=== PATIENT | male | born 1945 ===

== ENCOUNTER 2020-06-12 17:05 | Emergency (ER) | payer OTHER ==
[~2020-06-12] VITALS: Ht 175.3 cm; Wt 72.6 kg
[2020-06-12 17:36] LABS: BASOPHILS ABSOLUTE AUTO 0.08 K/mm3 (0.00-0.23); BASOPHILS PERCENT AUTO 1 % (0-2); EOSINOPHILS ABSOLUTE AUTO 0.14 K/mm3 (0.00-0.68); EOSINOPHILS PERCENT AUTO 2 % (0-6); Hematocrit 39.6 % (37.0-53.0); Hemoglobin 13.7 g/dL (13.5-17.5); IMMATURE GRAN ABSOLUTE AUTO 0.02 K/mm3 (0.00-0.10); IMMATURE GRAN PERCENT AUTO 0 % (0-1); LYMPHOCYTES ABSOLUTE AUTO 2.07 K/mm3 (0.84-5.20); LYMPHOCYTES PERCENT AUTO 22 % (21-46); MONOCYTES ABSOLUTE AUTO 0.73 K/mm3 (0.16-1.47); MONOCYTES PERCENT AUTO 8 % (4-13); Mean Corpuscular HGB 34.8 pg (26.0-34.0); Mean Corpuscular HGB Conc 34.6 g/dL (31.5-36.5); Mean Corpuscular Volume 101 fL (80-100); Mean Platelet Volume 9.7 fL (9.1-12.4); NEUTROPHILS ABSOLUTE AUTO 6.27 K/mm3 (1.96-9.15); NEUTROPHILS PERCENT AUTO 67 % (41-73); Platelet Count 289 K/mm3 (150-400); RDW Coefficient Variation 11.3 % (11.7-14.2); RDW Standard Deviation 41.7 fL (35.1-46.3); Red Blood Cell Count 3.94 M/mm3 (4.30-5.90); White Blood Cell Count 9.31 K/mm3 (4.00-11.30)
[2020-06-12 17:50] LABS: Prothrombin Time Results 10.7 Sec (9.7-11.5)
[2020-06-12 17:51] LABS: Alanine Aminotransfer (ALT/SGP 21 U/L (12-78); Albumin, Blood 3.9 g/dL (3.4-5.0); Albumin/Globulin Ratio 0.9 (0.8-1.8); Alk Phos 70 U/L (50-136); Anion Gap 7 mmol/L (6-16); Aspartate Aminotrans (AST/SGOT 26 U/L (12-37); Bilirubin, Total 0.9 mg/dL (0.1-1.0); Blood Urea Nitrogen 16 mg/dL (8-24); Bun/Creatinine Ratio 15.8 (12.0-20.0); CO2, Blood 26 mmol/L (21-32); Chloride, Blood 105 mmol/L (98-108); Creatinine, Blood 1.01 mg/dL (0.60-1.20); Globulin, Blood 4.3 g/dL (2.2-4.0); Glomerular Filtration Rate >60 (60-); Glucose, Blood 101 mg/dL (70-99); Potassium, Blood 3.8 mmol/L (3.5-5.5); Sodium, Blood 138 mmol/L (136-145); Total Protein, Blood 8.2 g/dL (6.4-8.2)
== END 2020-06-12 21:05 | disposition short-term general hospital (02) ==
LOC: ER 17:05
PROVIDERS: Emergency Medicine
DX: S06.5X9A Traumatic subdural hemorrhage with loss of consciousness of unspecified duration, initial encounter (principal); H57.89 Other specified disorders of eye and adnexa; Z79.82 Long term (current) use of aspirin; Z79.02 Long term (current) use of antithrombotics/antiplatelets; Z79.899 Other long term (current) drug therapy; Z88.0 Allergy status to penicillin; Z88.1 Allergy status to other antibiotic agents; W18.2XXA Fall in (into) shower or empty bathtub, initial encounter
CPT/HCPCS: 36415; 70450; 80053; 85025; 85610; 85730; 93005; 93010; 99285-25

== ENCOUNTER → 2020-06-12 | Outpatient (CLI) | payer OTHER ==
[~2020-06-12] MED LIST: ALBU3IS INH; ASPI81CH PO; ASPI81EC; CLOP75; CLOP75 PO; Cleocin HCl300 MG PO; Crestor20 MG PO; Diovan160 MG PO; EZET10; FINA5 PO; FISH1000 PO; FOL2.2T; FOLI1 PO; FURO20 PO; HYDCHL12.5 PO; MELA3 PO; METO25ER PO; OXYACE5T PO; PIOG15; PROAIR RESPICL90 MCG; PROM25 PO; ROSU10TA; VALS80; VALSARTAN160 MG PO; [UNRECOGNIZED DRUG - OTHER]
== END | disposition home or self-care (01) ==
LOC: LAB 15:35 → LAB SHORT 15:35
DX: R51.0 Headache with orthostatic component, not elsewhere classified (principal)
CPT/HCPCS: 85651

== ENCOUNTER 2020-07-31 15:07 | Emergency (ER) | payer OTHER ==
[~2020-07-31] VITALS: Ht 172.7 cm; Wt 71.2 kg
[2020-07-31 16:06] LABS: BASOPHILS ABSOLUTE AUTO 0.08 K/mm3 (0.00-0.23); BASOPHILS PERCENT AUTO 1 % (0-2); EOSINOPHILS PERCENT AUTO 4 % (0-6); Hematocrit 37.1 % (37.0-53.0); Hemoglobin 12.3 g/dL (13.5-17.5); IMMATURE GRAN ABSOLUTE AUTO 0.01 K/mm3 (0.00-0.10); IMMATURE GRAN PERCENT AUTO 0 % (0-1); LYMPHOCYTES ABSOLUTE AUTO 2.15 K/mm3 (0.84-5.20); LYMPHOCYTES PERCENT AUTO 31 % (21-46); MONOCYTES ABSOLUTE AUTO 0.66 K/mm3 (0.16-1.47); MONOCYTES PERCENT AUTO 10 % (4-13); Mean Corpuscular HGB 33.2 pg (26.0-34.0); Mean Corpuscular HGB Conc 33.2 g/dL (31.5-36.5); Mean Corpuscular Volume 100 fL (80-100); Mean Platelet Volume 9.9 fL (9.1-12.4); NEUTROPHILS ABSOLUTE AUTO 3.68 K/mm3 (1.96-9.15); NEUTROPHILS PERCENT AUTO 53 % (41-73); Platelet Count 190 K/mm3 (150-400); RDW Coefficient Variation 11.8 % (11.7-14.2); RDW Standard Deviation 43.2 fL (35.1-46.3); White Blood Cell Count 6.88 K/mm3 (4.00-11.30)
[2020-07-31 16:15] LABS: Alanine Aminotransfer (ALT/SGP 16 U/L (12-78); Albumin, Blood 3.3 g/dL (3.4-5.0); Alk Phos 57 U/L (50-136); Anion Gap 4 mmol/L (6-16); Aspartate Aminotrans (AST/SGOT 14 U/L (12-37); Bilirubin, Total 0.7 mg/dL (0.1-1.0); Blood Urea Nitrogen 22 mg/dL (8-24); Bun/Creatinine Ratio 18.6 (12.0-20.0); CO2, Blood 27 mmol/L (21-32); Calcium, Blood 9.2 mg/dL (8.5-10.1); Chloride, Blood 109 mmol/L (98-108); Creatinine, Blood 1.18 mg/dL (0.60-1.20); Globulin, Blood 3.4 g/dL (2.2-4.0); Glomerular Filtration Rate >60 (60-); Glucose, Blood 148 mg/dL (70-99); Potassium, Blood 3.6 mmol/L (3.5-5.5); Sodium, Blood 140 mmol/L (136-145); Total Protein, Blood 6.7 g/dL (6.4-8.2)
[2020-07-31 16:18] LABS: International Normalized Ratio 1.01; Prothrombin Time Results 10.9 Sec (9.7-11.5)
== END 2020-07-31 17:17 | disposition home or self-care (01) ==
LOC: ER 15:07
PROVIDERS: Physician Assistant
DX: G45.9 Transient cerebral ischemic attack, unspecified (principal); R47.01 Aphasia; R20.0 Anesthesia of skin; I10 Essential (primary) hypertension; E78.5 Hyperlipidemia, unspecified; E11.9 Type 2 diabetes mellitus without complications; Z87.891 Personal history of nicotine dependence; Z88.0 Allergy status to penicillin; Z88.1 Allergy status to other antibiotic agents; Z79.899 Other long term (current) drug therapy
CPT/HCPCS: 36415; 70450; 80053; 82947; 85025; 85610; 93005; 93010; 99285-25

== ENCOUNTER 2021-09-15 12:45 | Emergency (ER) | payer OTHER ==
[~2021-09-15] VITALS: Ht 172.7 cm; Wt 72.6 kg
[2021-09-15 13:45] LABS: BASOPHILS ABSOLUTE AUTO 0.11 K/mm3 (0.00-0.23); BASOPHILS PERCENT AUTO 1 % (0-2); EOSINOPHILS ABSOLUTE AUTO 0.13 K/mm3 (0.00-0.68); EOSINOPHILS PERCENT AUTO 1 % (0-6); Hematocrit 43.1 % (37.0-53.0); Hemoglobin 14.2 g/dL (13.5-17.5); IMMATURE GRAN ABSOLUTE AUTO 0.06 K/mm3 (0.00-0.10); IMMATURE GRAN PERCENT AUTO 1 % (0-1); LYMPHOCYTES ABSOLUTE AUTO 1.51 K/mm3 (0.84-5.20); LYMPHOCYTES PERCENT AUTO 12 % (21-46); MONOCYTES PERCENT AUTO 5 % (4-13); Mean Corpuscular HGB 35.7 pg (26.0-34.0); Mean Corpuscular HGB Conc 32.9 g/dL (31.5-36.5); Mean Corpuscular Volume 108 fL (80-100); Mean Platelet Volume 9.7 fL (9.1-12.4); NEUTROPHILS ABSOLUTE AUTO 10.09 K/mm3 (1.96-9.15); NEUTROPHILS PERCENT AUTO 81 % (41-73); Platelet Count 215 K/mm3 (150-400); RDW Coefficient Variation 12.5 % (11.7-14.2); RDW Standard Deviation 50.4 fL (35.1-46.3); Red Blood Cell Count 3.98 M/mm3 (4.30-5.90)
[2021-09-15 14:09] LABS: Albumin, Blood 3.7 g/dL (3.4-5.0); Albumin/Globulin Ratio 1.1 (0.8-1.8); Bilirubin, Total 0.6 mg/dL (0.1-1.0); Bun/Creatinine Ratio 18.1 (12.0-20.0); Calcium, Blood 9.7 mg/dL (8.5-10.1); Creatinine, Blood 1.38 mg/dL (0.60-1.20); Globulin, Blood 3.3 g/dL (2.2-4.0); Potassium, Blood 3.5 mmol/L (3.5-5.5)
[2021-09-15 18:02] LABS: Source, Urine Clean Catch
[2021-09-15 18:07] LABS: Appearance, Urine Hazy (Clear); Bilirubin, Urine Neg (Neg); Blood, Urine 3+ (Neg); Color, Urine Yellow (P-Yellow); Glucose Qualitative, Urine Neg (Neg); Ketones, Urine 3+ (Neg); Leukocyte Esterase, Urine Neg (Neg); Nitrite, Urine Neg (Neg); Protein, Urine 3+ (Neg); Urobilinogen, Urine NORM (Normal)
[2021-09-15 18:29] LABS: Amorphous Light (0-Heavy); Bacteria Mod /hpf; Mucus Light (0-Heavy); Squamous Epithelial Cells Rare /hpf (Few)
== END 2021-09-15 17:16 | disposition left against medical advice (07) ==
LOC: ER 12:45
PROVIDERS: Student in an Organized Health Care Education/Training Program
DX: R00.2 Palpitations (principal); H53.8 Other visual disturbances; Z53.21 Procedure and treatment not carried out due to patient leaving prior to being seen by health care provider
CPT/HCPCS: 36415; 71045; 80053; 81001; 83880; 84484; 85025

== ENCOUNTER 2023-05-05 15:25 | Observation (INO) | payer OTHER ==
[~2023-05-05] VITALS: Ht 175.3 cm; Wt 69.8 kg
[~2023-05-05 15:25] MED LIST changes: +Folic Acid0.8 MG PO
[2023-05-05] MEDS ORDERED: Ketorolac Tromethamine 30mg Vial IV ONE (16:15)
[2023-05-05] MEDS ORDERED: Aspirin 81 MG Chew PO ONE (16:15)
[2023-05-05 16:16] LABS: BASOPHILS ABSOLUTE AUTO 0.07 K/mm3 (0.00-0.23); BASOPHILS PERCENT AUTO 1 % (0-2); EOSINOPHILS ABSOLUTE AUTO 0.52 K/mm3 (0.00-0.68); EOSINOPHILS PERCENT AUTO 6 % (0-6); Hematocrit 38.6 % (37.0-53.0); Hemoglobin 13.5 g/dL (13.5-17.5); IMMATURE GRAN ABSOLUTE AUTO 0.01 K/mm3 (0.00-0.10); IMMATURE GRAN PERCENT AUTO 0 % (0-1); LYMPHOCYTES ABSOLUTE AUTO 1.62 K/mm3 (0.84-5.20); LYMPHOCYTES PERCENT AUTO 18 % (21-46); MONOCYTES ABSOLUTE AUTO 0.86 K/mm3 (0.16-1.47); MONOCYTES PERCENT AUTO 10 % (4-13); Mean Corpuscular HGB 35.8 pg (26.0-34.0); Mean Corpuscular Volume 102 fL (80-100); Mean Platelet Volume 9.9 fL (9.1-12.4); NEUTROPHILS ABSOLUTE AUTO 5.96 K/mm3 (1.96-9.15); NEUTROPHILS PERCENT AUTO 66 % (41-73); Platelet Count 171 K/mm3 (150-400); RDW Coefficient Variation 12.2 % (11.7-14.2); RDW Standard Deviation 46.2 fL (35.1-46.3); Red Blood Cell Count 3.77 M/mm3 (4.30-5.90); White Blood Cell Count 9.04 K/mm3 (4.00-11.30)
[2023-05-05] MEDS ORDERED: METO50ER PO (16:27)
[2023-05-05] MEDS ORDERED: Diovan160 MG PO (16:27)
[2023-05-05 16:31] LABS: International Normalized Ratio 1.04; Prothrombin Time Results 10.9 Sec (9.7-11.5)
[2023-05-05 16:35] LABS: Calcium, Ionized (POC) 1.25 mmol/L (1.10-1.46); Chloride (POC) 100 mmol/L (98-108); Creatinine (POC) 1.4 mg/dL (0.8-1.3); Glucose (ISTAT POC) 193 mg/dL (70-99); Hemoglobin (POC) 12.9 g/dL (13.5-17.5); Potassium (POC) 3.3 mmol/L (3.5-5.5); Sodium (POC) 140 mmol/L (135-148); Total CO2 (POC) 29 mmol/L (21-32)
[2023-05-05 16:48] LABS: Albumin, Blood 3.4 g/dL (3.4-5.0); Albumin/Globulin Ratio 0.8 (0.8-1.8); Bun/Creatinine Ratio 17.3 (12.0-20.0); Calcium, Blood 9.6 mg/dL (8.5-10.1); Creatinine, Blood 1.33 mg/dL (0.60-1.20); Potassium, Blood 3.5 mmol/L (3.5-5.5); Total Protein, Blood 7.4 g/dL (6.4-8.2)
[2023-05-05] MEDS ORDERED: Acetaminophen 325 MG TABLET PO PRN (17:55)
[2023-05-05] MEDS ORDERED: FLU VACC QS2023-24(6MOS UP)/PF 60 MCG/0.5 ML SYRINGE IM SCH (17:55)
[2023-05-05] MEDS ORDERED: Ondansetron HCl 2 MG / ML 2ML Vial IV PRN (17:55)
[2023-05-05] MEDS ORDERED: Labetalol HCL 5 MG/ML 4ML Injection (Single Dose) IV PRN (18:10)
[2023-05-05 19:46] VITALS: BP 177/83
[2023-05-05] MEDS ORDERED: ELIQUIS5 M2 PO (19:49)
[2023-05-05] MEDS ORDERED: Rosuvastatin Calcium 10 MG Tab PO SCH (21:00)
[2023-05-05] MEDS ORDERED: Ibuprofen 600 MG Tab PO SCH (21:00)
[2023-05-05] MEDS ORDERED: Apixaban 5 MG Tab PO SCH (21:00)
[2023-05-05] MEDS ORDERED: Losartan Potassium 50 MG Tab PO SCH (21:00)
[2023-05-06 03:00] VITALS: BP 155/84
--- NOTE | 2023-05-06 03:25 | NUR ---
SHIFT SUMMERY, PT RESTING IN BED, NO C/O PAIN OR SOB AT THIS TIME. PT APPEARS TO BE SLEEPING. CALL LIGHTIN REACH . PT UP AT GREG , PT STEADY ON HIS FEET.
[2023-05-06 04:56] LABS: Hematocrit 34.9 % (37.0-53.0); Hemoglobin 12.3 g/dL (13.5-17.5); Mean Corpuscular HGB 35.7 pg (26.0-34.0); Mean Corpuscular HGB Conc 35.2 g/dL (31.5-36.5); Mean Corpuscular Volume 101 fL (80-100); Mean Platelet Volume 9.5 fL (9.1-12.4); Platelet Count 144 K/mm3 (150-400); RDW Coefficient Variation 12.1 % (11.7-14.2); RDW Standard Deviation 45.4 fL (35.1-46.3); Red Blood Cell Count 3.45 M/mm3 (4.30-5.90); White Blood Cell Count 7.97 K/mm3 (4.00-11.30)
[2023-05-06 07:14] VITALS: BP 161/84
[2023-05-06] MEDS ORDERED: Insulin Human Lispro 100 Units/ML 3ML Syringe SC SCH (07:30)
[2023-05-06] MEDS ORDERED: HydrALAZINE HCl 20 MG / ML 1ML Vial IV PRN (08:05)
[2023-05-06] MEDS ORDERED: Metoprolol Succinate 50 MG TABCR PO SCH (09:00)
--- NOTE | 2023-05-06 09:00 | NUR ---
pt laying in bed awake a/ox4, pleasant and cooperative with care, follows commands well, denies complaints, states doing ok, lungs are clear t/o, resp even and unlabored, on r/a, denies c.p. at this time, no cough noted, hrr, tele in place running sr in the 60's, no edema noted, ppp+1, cap refill<3 sec, vs stable, afebrile, piv site is clear and patent, to lac, btx4, abd flat soft nontender, voids without diff, skin c/w/d, maew, shikha, call light in reach.
[2023-05-06 16:46] VITALS: BP 169/93
--- NOTE | 2023-05-06 18:26 | NUR ---
pt will be having a stress test in am, one day protocol, will keep npo after mid, pt and spouce aware, no acute changes or reports of chest pain this shift. robert light in reach.
[2023-05-06 19:31] VITALS: BP 162/91
--- NOTE | 2023-05-07 04:22 | NUR ---
SHIFT SUMMERY, PT RESTING IN BED, PT UP TO BR SEVERAL TIMES DURRING THE NIGHT. PT DENIED CHEST PAIN OR SOB. PT NPO FOR STRESS TEST THIS AM. CALL DORCAS IN REACH.
[2023-05-07 04:52] VITALS: BP 160/79
[2023-05-07 05:19] LABS: BASOPHILS ABSOLUTE AUTO 0.09 K/mm3 (0.00-0.23); BASOPHILS PERCENT AUTO 1 % (0-2); EOSINOPHILS ABSOLUTE AUTO 0.98 K/mm3 (0.00-0.68); EOSINOPHILS PERCENT AUTO 12 % (0-6); Hematocrit 36.2 % (37.0-53.0); Hemoglobin 12.5 g/dL (13.5-17.5); IMMATURE GRAN ABSOLUTE AUTO 0.01 K/mm3 (0.00-0.10); IMMATURE GRAN PERCENT AUTO 0 % (0-1); LYMPHOCYTES ABSOLUTE AUTO 2.75 K/mm3 (0.84-5.20); LYMPHOCYTES PERCENT AUTO 34 % (21-46); MONOCYTES ABSOLUTE AUTO 0.71 K/mm3 (0.16-1.47); MONOCYTES PERCENT AUTO 9 % (4-13); Mean Corpuscular HGB Conc 34.5 g/dL (31.5-36.5); Mean Corpuscular Volume 101 fL (80-100); Mean Platelet Volume 9.9 fL (9.1-12.4); NEUTROPHILS ABSOLUTE AUTO 3.49 K/mm3 (1.96-9.15); NEUTROPHILS PERCENT AUTO 44 % (41-73); Platelet Count 175 K/mm3 (150-400); RDW Standard Deviation 45.1 fL (35.1-46.3); Red Blood Cell Count 3.57 M/mm3 (4.30-5.90); White Blood Cell Count 8.03 K/mm3 (4.00-11.30)
[2023-05-07 05:46] LABS: Bun/Creatinine Ratio 13.8 (12.0-20.0); Calcium, Blood 9.2 mg/dL (8.5-10.1); Creatinine, Blood 1.45 mg/dL (0.60-1.20); Magnesium, Blood 2.3 mg/dL (1.6-2.4); Phosphorus, Blood 2.7 mg/dL (2.5-4.9); Potassium, Blood 3.4 mmol/L (3.5-5.5)
[2023-05-07 08:01] VITALS: BP 167/84
[2023-05-07] MEDS ORDERED: Regadenoson 0.4 MG/5 ML SYRINGE ONE (13:48)
[2023-05-07] MEDS ORDERED: Aminophylline 250MG / 10ML 10 ML Vial ONE (13:48)
--- NOTE | 2023-05-07 14:51 | NUR ---
Pt. is awake and welcomes my visit. Spouse is at bedside. Pt. is pleasant. Facilitated a life review and considered matters of je and belief. Pt. displays evidence of awareness and engagement. Pt. verbalizes that he is expected a stress test at anytime. Prayed with Pt. and spouse. Both verbalized gratitude for the spiritual care visit.
[2023-05-07 16:11] VITALS: BP 159/93
[2023-05-07] MEDS ORDERED: VITAMIN B125000 MC1 PO (16:41)
[2023-05-07] MEDS ORDERED: FLUT1DIS5 INH (16:42)
--- NOTE | 2023-05-07 16:46 | NUR ---
DAYSHIFT SUMMARY Patient alert & oriented x4. Plan today is 1- day Stress Test proctocol. Testing completed this afternoon, results in in the chart. Telemetry in place, NSR 66. Vitals stable. Patient denies chest pain, SOB. Patient OOB walking around the unit today. Will continue plan of care, awiating discharge planning.
[2023-05-07] MEDS ORDERED: IBUP600 PO (17:34)
--- NOTE | 2023-05-07 17:51 | NUR ---
Stress Test negative. Patient medically stable for discharge, no new medications. Reviewed discharge edcuation with patient and . Removed IVs. Patient left unit at 1750.
== END 2023-05-07 17:47 | disposition home or self-care (01) ==
LOC: ER 15:25 → MEDS 15:26
PROVIDERS: Emergency Medicine; Hospitalist; Nurse Practitioner Acute Care; Physician Assistant; ADMIT Hospitalist
DX: I31.9 Disease of pericardium, unspecified (principal); E11.9 Type 2 diabetes mellitus without complications; I25.10 Atherosclerotic heart disease of native coronary artery without angina pectoris; I10 Essential (primary) hypertension; E78.5 Hyperlipidemia, unspecified; Z86.73 Personal history of transient ischemic attack (TIA), and cerebral infarction without residual deficits; Z88.0 Allergy status to penicillin; Z88.1 Allergy status to other antibiotic agents
CPT/HCPCS: 36415; 71045; 78452; 80047; 80048; 80053; 83690; 83735; 84100; 84484; 85014; 85025; 85027; 85610; 85651; 86140; 93005; 93010; 93017; 93306; 96374; 99285-25; A9270; A9500; G0378; J0280; J1885; J2785

== ENCOUNTER 2023-11-11 03:02 | Day surgery (SDC) | payer OTHER ==
[~2023-11-11 03:02] MED LIST changes: +ELIQUIS5 M2 PO; +FLUT1DIS5 INH; +IBUP600 PO; +METO50ER PO; +VITAMIN B125000 MC1 PO
[2023-11-11] MEDS ORDERED: NS 250 ML IV SCH (07:00)
[2023-11-11 07:42] VITALS: BP 148/72
[2023-11-11 08:09] VITALS: BP 157/68
[2023-11-11] MEDS ORDERED: HYDCOR10 PO ×2 (08:17→08:18)
[2023-11-11] MEDS ORDERED: OMEP20ER PO (08:18)
[2023-11-11 09:10] VITALS: BP 175/72
[2023-11-11 09:45] VITALS: BP 160/79
== END 2023-11-11 09:48 | disposition home or self-care (01) ==
LOC: ATC 03:02
PROVIDERS: Internal Medicine
DX: D62 Acute posthemorrhagic anemia (principal); E61.1 Iron deficiency; K92.1 Melena; I10 Essential (primary) hypertension; E78.5 Hyperlipidemia, unspecified; Z88.0 Allergy status to penicillin; Z88.1 Allergy status to other antibiotic agents; Z79.899 Other long term (current) drug therapy
CPT/HCPCS: 36415; 36430; 82728; 83540; 83550; 86850; 86900; 86901; 86923; J7050; P9016

== ENCOUNTER 2023-12-22 20:53 | Emergency (ER) | payer OTHER ==
[~2023-12-22] VITALS: Ht 177.8 cm; Wt 71.2 kg
[~2023-12-22 20:53] MED LIST changes: +HYDCOR10 PO; +OMEP20ER PO
[2023-12-22 22:00] LABS: BASOPHILS ABSOLUTE AUTO 0.04 K/mm3 (0.00-0.23); BASOPHILS PERCENT AUTO 1 % (0-2); EOSINOPHILS ABSOLUTE AUTO 0.05 K/mm3 (0.00-0.68); EOSINOPHILS PERCENT AUTO 1 % (0-6); Hematocrit 34.4 % (37.0-53.0); Hemoglobin 10.9 g/dL (13.5-17.5); IMMATURE GRAN ABSOLUTE AUTO 0.01 K/mm3 (0.00-0.10); IMMATURE GRAN PERCENT AUTO 0 % (0-1); LYMPHOCYTES ABSOLUTE AUTO 2.19 K/mm3 (0.84-5.20); LYMPHOCYTES PERCENT AUTO 32 % (21-46); MONOCYTES ABSOLUTE AUTO 0.35 K/mm3 (0.16-1.47); MONOCYTES PERCENT AUTO 5 % (4-13); Mean Corpuscular HGB 30.9 pg (26.0-34.0); Mean Corpuscular HGB Conc 31.7 g/dL (31.5-36.5); Mean Corpuscular Volume 98 fL (80-100); Mean Platelet Volume 10.5 fL (9.1-12.4); NEUTROPHILS ABSOLUTE AUTO 4.26 K/mm3 (1.96-9.15); NEUTROPHILS PERCENT AUTO 62 % (41-73); Platelet Count 164 K/mm3 (150-400); RDW Coefficient Variation 20.4 % (11.7-14.2); RDW Standard Deviation 72.9 fL (35.1-46.3); Red Blood Cell Count 3.53 M/mm3 (4.30-5.90)
[2023-12-22 22:18] LABS: International Normalized Ratio 0.98; Prothrombin Time Results 10.5 Sec (9.7-11.5)
[2023-12-22 22:21] LABS: Source, Urine Clean Catch
[2023-12-22 22:23] LABS: Bilirubin, Urine Neg (Neg); Blood, Urine 3+ (Neg); Glucose Qualitative, Urine Neg (Neg); Ketones, Urine Neg (Neg); Leukocyte Esterase, Urine Neg (Neg); Nitrite, Urine Neg (Neg); Protein, Urine 3+ (Neg); Specific Gravity, Urine 1.015 (1.003-1.022); Urobilinogen, Urine NORM (Normal)
[2023-12-22 22:23] LABS: Albumin, Blood 3.1 g/dL (3.4-5.0); Bilirubin, Total 0.4 mg/dL (0.1-1.0); Bun/Creatinine Ratio 11.5 (12.0-20.0); Calcium, Blood 9.2 mg/dL (8.5-10.1); Creatinine, Blood 1.31 mg/dL (0.60-1.20); Potassium, Blood 3.3 mmol/L (3.5-5.5); Total Protein, Blood 6.1 g/dL (6.4-8.2)
[2023-12-22 22:30] LABS: Appearance, Urine Clear (Clear); Color, Urine Pale Yellow (P-Yellow)
[2023-12-22 22:31] LABS: Bacteria Rare /hpf; Granular Casts 0-2 /lpf (0); Hyaline Casts 0-2 /lpf (0-2); Red Blood Cells, Urine 0-2 /hpf (0-2); Squamous Epithelial Cells Rare /hpf (Few); White Blood Cells, Urine 0-2 /hpf (0-5)
[2023-12-23 01:45] VITALS: BP 172/68
== END 2023-12-23 02:30 | disposition home or self-care (01) ==
LOC: ER 20:53
PROVIDERS: Student in an Organized Health Care Education/Training Program
DX: M54.2 Cervicalgia (principal); I10 Essential (primary) hypertension; Z79.01 Long term (current) use of anticoagulants; Z87.891 Personal history of nicotine dependence; Z79.899 Other long term (current) drug therapy; Z88.0 Allergy status to penicillin; Z88.1 Allergy status to other antibiotic agents
CPT/HCPCS: 70450; 72125; 80053; 81001; 85025; 85610; 93005; 93010; 99284-25

== ENCOUNTER 2024-03-01 21:14 | Observation (INO) | payer OTHER ==
[~2024-03-01] VITALS: Ht 167.6 cm; Wt 66.4 kg
[2024-03-01 22:00] LABS: BASOPHILS ABSOLUTE AUTO 0.04 K/mm3 (0.00-0.23); BASOPHILS PERCENT AUTO 1 % (0-2); EOSINOPHILS ABSOLUTE AUTO 0.07 K/mm3 (0.00-0.68); EOSINOPHILS PERCENT AUTO 1 % (0-6); Hematocrit 38.7 % (37.0-53.0); Hemoglobin 13.3 g/dL (13.5-17.5); IMMATURE GRAN ABSOLUTE AUTO 0.01 K/mm3 (0.00-0.10); IMMATURE GRAN PERCENT AUTO 0 % (0-1); LYMPHOCYTES ABSOLUTE AUTO 2.29 K/mm3 (0.84-5.20); LYMPHOCYTES PERCENT AUTO 33 % (21-46); MONOCYTES ABSOLUTE AUTO 0.58 K/mm3 (0.16-1.47); MONOCYTES PERCENT AUTO 8 % (4-13); Mean Corpuscular HGB 34.1 pg (26.0-34.0); Mean Corpuscular HGB Conc 34.4 g/dL (31.5-36.5); Mean Corpuscular Volume 99 fL (80-100); Mean Platelet Volume 10.2 fL (9.1-12.4); NEUTROPHILS PERCENT AUTO 57 % (41-73); Platelet Count 231 K/mm3 (150-400); RDW Coefficient Variation 12.9 % (11.7-14.2); RDW Standard Deviation 46.6 fL (35.1-46.3); White Blood Cell Count 6.99 K/mm3 (4.00-11.30)
[2024-03-01] MEDS ORDERED: Acetaminophen 325 MG TABLET PO ONE (22:05)
[2024-03-01 22:14] LABS: International Normalized Ratio 0.95; Prothrombin Time Results 10.2 Sec (9.7-11.5)
[2024-03-01 22:25] LABS: Albumin, Blood 3.4 g/dL (3.4-5.0); Bilirubin, Total 0.9 mg/dL (0.1-1.0); Calcium, Blood 9.7 mg/dL (8.5-10.1); Creatinine, Blood 1.14 mg/dL (0.60-1.20); Globulin, Blood 3.5 g/dL (2.2-4.0); Magnesium, Blood 2.1 mg/dL (1.6-2.4); Potassium, Blood 2.8 mmol/L (3.5-5.5); Total Protein, Blood 6.9 g/dL (6.4-8.2)
[2024-03-01] MEDS ORDERED: Ondansetron HCl 2 MG / ML 2ML Vial IV ONE (22:30)
[2024-03-01 23:05] LABS: Source, Urine Clean Catch
[2024-03-01] MEDS ORDERED: Labetalol HCL 5 MG/ML 4ML Injection (Single Dose) IV ONE (23:10)
[2024-03-01 23:22] LABS: Bilirubin, Urine Neg (Neg); Blood, Urine 2+ (Neg); Glucose Qualitative, Urine 3+ (Neg); Ketones, Urine Neg (Neg); Leukocyte Esterase, Urine Neg (Neg); Nitrite, Urine Neg (Neg); Protein, Urine 3+ (Neg); Urobilinogen, Urine NORM (Normal)
[2024-03-01 23:34] LABS: Appearance, Urine Clear (Clear); Color, Urine Yellow (P-Yellow)
[2024-03-01 23:37] LABS: Bacteria Few /hpf; Red Blood Cells, Urine 0-2 /hpf (0-2); Squamous Epithelial Cells Few /hpf (Few); White Blood Cells, Urine 0-2 /hpf (0-5)
[2024-03-02] MEDS ORDERED: Potassium Chloride 20 MEQ/15 ML UDC PO ONE (00:20)
[2024-03-02] MEDS ORDERED: Labetalol HCL 5 MG/ML 4ML Injection (Single Dose) IV ONE (00:40)
[2024-03-02] MEDS ORDERED: Ondansetron HCl 2 MG / ML 2ML Vial IV PRN (02:05)
[2024-03-02] MEDS ORDERED: HydrALAZINE HCl 20 MG / ML 1ML Vial IV PRN ×3 (02:05→03:45)
[2024-03-02] MEDS ORDERED: Acetaminophen 325 MG TABLET PO PRN (02:05)
[2024-03-02] MEDS ORDERED: Aspirin 81 MG Chew PO SCH ×3 (03:00→09:00)
[2024-03-02] MEDS ORDERED: LORazepam 2 MG/ML 1ML Injection IV PRN ×2 (03:35)
[2024-03-02] MEDS ORDERED: Metoclopramide HCl 5MG / ML 2ML Vial IV PRN (03:55)
[2024-03-02 05:37] LABS: BASOPHILS ABSOLUTE AUTO 0.06 K/mm3 (0.00-0.23); BASOPHILS PERCENT AUTO 1 % (0-2); EOSINOPHILS ABSOLUTE AUTO 0.01 K/mm3 (0.00-0.68); EOSINOPHILS PERCENT AUTO 0 % (0-6); Hematocrit 38.4 % (37.0-53.0); Hemoglobin 13.3 g/dL (13.5-17.5); IMMATURE GRAN ABSOLUTE AUTO 0.03 K/mm3 (0.00-0.10); IMMATURE GRAN PERCENT AUTO 0 % (0-1); LYMPHOCYTES ABSOLUTE AUTO 1.34 K/mm3 (0.84-5.20); LYMPHOCYTES PERCENT AUTO 15 % (21-46); MONOCYTES ABSOLUTE AUTO 0.67 K/mm3 (0.16-1.47); MONOCYTES PERCENT AUTO 8 % (4-13); Mean Corpuscular HGB 34.3 pg (26.0-34.0); Mean Corpuscular HGB Conc 34.6 g/dL (31.5-36.5); Mean Corpuscular Volume 99 fL (80-100); Mean Platelet Volume 10.4 fL (9.1-12.4); NEUTROPHILS PERCENT AUTO 76 % (41-73); Platelet Count 225 K/mm3 (150-400); RDW Standard Deviation 46.5 fL (35.1-46.3); Red Blood Cell Count 3.88 M/mm3 (4.30-5.90); White Blood Cell Count 8.81 K/mm3 (4.00-11.30)
[2024-03-02 05:48] LABS: International Normalized Ratio 0.97; Prothrombin Time Results 10.4 Sec (9.7-11.5)
[2024-03-02 07:00] LABS: Alanine Aminotransfer (ALT/SGP 13 U/L (12-78); Albumin, Blood 3.4 g/dL (3.4-5.0); Alk Phos 67 U/L (50-136); Anion Gap 13 mmol/L (3-11); Aspartate Aminotrans (AST/SGOT 21 U/L (12-37); Bilirubin, Total 1.1 mg/dL (0.1-1.0); Blood Urea Nitrogen 15 mg/dL (8-24); Bun/Creatinine Ratio 13.2 (12.0-20.0); CO2, Blood 31 mmol/L (21-32); Calcium, Blood 9.8 mg/dL (8.5-10.1); Chloride, Blood 103 mmol/L (98-108); Cholesterol 247 mg/dL (50-200); Creatinine, Blood 1.14 mg/dL (0.60-1.20); Ethanol (Alcohol), Blood, Med <3 mg/dL; Globulin, Blood 3.4 g/dL (2.2-4.0); Glomerular Filtration Rate 65 (60-); Glucose, Blood 165 mg/dL (70-99); HDL Cholesterol 121 mg/dL (>39); LDL/HDL RATIO 0.9; Low Density Lipoprotein Chol 110 mg/dL (0-110); Potassium, Blood 2.8 mmol/L (3.5-5.5); Sodium, Blood 144 mmol/L (136-145); Total Protein, Blood 6.8 g/dL (6.4-8.2); Triglycerides 80 mg/dL (30-160); Very Low Density Lipoprot Chol 16 mg/dL (6-32)
[2024-03-02 08:12] VITALS: BP 164/84
--- NOTE | 2024-03-02 08:52 | NUR ---
DR ERNA PINK PT NOT TAKING ELIQUIS D/T SIGNIFICANT GI BLEED DURING THE SUMMER. HE HAS BEEN F/U WITH GI THAT DID NOT RECOMMEND SCOPE. CARE ONGOING.
[2024-03-02] MEDS ORDERED: Clopidogrel Bisulfate 75 MG Tab PO SCH (09:00)
[2024-03-02] MEDS ORDERED: Multivitamins 1 Tab PO SCH (09:00)
[2024-03-02] MEDS ORDERED: Atorvastatin 40 MG Tab PO SCH ×3 (09:00)
[2024-03-02] MEDS ORDERED: Famotidine 20 MG Tab PO SCH (09:00)
[2024-03-02] MEDS ORDERED: Enoxaparin 40 MG/0.4 ML SYR SC SCH (09:00)
[2024-03-02] MEDS ORDERED: Thiamine HCl 100 MG Tab PO SCH (09:00)
[2024-03-02] MEDS ORDERED: Thiamine HCl 100 MG in NS 50 ML IV SCH (09:00)
[2024-03-02] MEDS ORDERED: ELIQUIS2.5 MG PO (11:12)
[2024-03-02] MEDS ORDERED: FLUDROCORTISON0.1 M1 PO (11:12)
[2024-03-02] MEDS ORDERED: POTCHL20ER PO (11:12)
[2024-03-02] MEDS ORDERED: Omeprazole 20 MG CapCR PO SCH (12:00)
[2024-03-02] MEDS ORDERED: Apixaban 5 MG Tab PO SCH (12:00)
[2024-03-02] MEDS ORDERED: Hydrocortisone 10 MG Tab PO SCH ×2 (12:00→14:00)
[2024-03-02 12:08] LABS: Potassium, Blood 2.7 mmol/L (3.5-5.5)
--- NOTE | 2024-03-02 13:49 | NUR ---
ADMISSION NOTE: PATIENT ARRIVED TO THE UNIT VIA GURNEY AT 0810; PATIENT WAS ALONE AND WAS ABLE TO SELF TRANSFER TO THE BED. PATIENT ALSO ASSISTED TO THE RESTROOM AND WAS STABLE. PATIENT SETTLED IN ROOM, CALL LIGHT PROVIDED, BED ALARM SET, AND NO SIGNS OR SYMPTOMS OF DISTRESS; WAS NOT SHOWING SIGNS OF DYSPHASIA.
[2024-03-02 15:08] VITALS: BP 195/95
--- NOTE | 2024-03-02 15:34 | NUR ---
PATIENT C/O RETURNED L EYE PAIN AND TINGLING IN R HAND; PATIENT APPEARING CONFUSING AND AGGITATED. VITALS OBTAINED AND ASSESSMENT COMPLETE. PATIENT STATES HE HAS A HISTORY OF MIGRAINES, BUT DOESN'T TAKE MEDICATION FOR THEM. THIS WAS REPORTED TO DR. PYLE; AWAITING NEW ORDERS.
[2024-03-02] MEDS ORDERED: SUMAtriptan succinate 50 MG Tab PO PRN (15:50)
[2024-03-02] MEDS ORDERED: Potassium Chl 20MEQ/Water100ML 100 ML IV SCH (16:00)
[2024-03-02] MEDS ORDERED: NS 250 ML IV PRN (16:00)
[2024-03-02] MEDS ORDERED: SUMAtriptan succinate 50 MG Tab PO ONE (16:55)
[2024-03-02 19:30] VITALS: BP 174/90
[2024-03-02] MEDS ORDERED: Rosuvastatin Calcium 10 MG Tab PO SCH (21:00)
[2024-03-03 02:23] VITALS: BP 125/96
--- NOTE | 2024-03-03 03:59 | NUR ---
SHIFT SUMMARY PT IS A&O X3-4, WAINWRIGHT, SOME CONFUSION NOTED R/T USING CALL LIGHT. PT IS PLEASANT, SMILING/WAVING TO STAFF. @HS, PT REPORTS NUMBNESS TO RIGHT HAND/LOWER ARM. RIGHT HAND HOT MILL TIN ROLLER WEAKER COMPARED TO LEFT HAND. PERRLA. DENIES TINGLING. PT ALSO REPORTS H/A BEHIND THE LEFT EYE. TYLENOL PRN EFFECTIVE PER PT REPORT. PT DENIES BLURRY VISION. TELE: SINUS TACH @105 WITH FREQUENT PAC'S. PT DENIES PAIN/PRESSURE/SOB. PT IS ON RA. [id number] PT WALKING AROUND THE UNIT WITH THE PLASTIC WELDER. NO ACUTE EVENTS DURING THIS SHIFT. BED AT THE LOWEST POSITION, CALL LIGHT WITHIN REACH. BED ALARM FOR SAFETY.
[2024-03-03 05:57] LABS: Albumin, Blood 3.2 g/dL (3.4-5.0); Anion Gap 7 mmol/L (3-11); Blood Urea Nitrogen 17 mg/dL (8-24); Bun/Creatinine Ratio 12.8 (12.0-20.0); CO2, Blood 37 mmol/L (21-32); Calcium, Blood 9.4 mg/dL (8.5-10.1); Chloride, Blood 102 mmol/L (98-108); Creatinine, Blood 1.33 mg/dL (0.60-1.20); Glomerular Filtration Rate 54 (60-); Glucose, Blood 119 mg/dL (70-99); Phosphorus, Blood 2.9 mg/dL (2.5-4.9); Potassium, Blood 2.6 mmol/L (3.5-5.5); Sodium, Blood 143 mmol/L (136-145)
[2024-03-03 07:16] VITALS: BP 145/81
[2024-03-03] MEDS ORDERED: Potassium Chl 20MEQ/Water100ML 100 ML IV SCH (08:40)
[2024-03-03] MEDS ORDERED: Potassium Chloride 20 MEQ TabCR PO ONE (09:00)
[2024-03-03] MEDS ORDERED: Losartan Potassium 50 MG Tab PO SCH (09:00)
[2024-03-03] MEDS ORDERED: Fludrocortisone Acetate 0.1 MG Tab PO SCH (09:00)
[2024-03-03] MEDS ORDERED: Cyanocobalamin 500 MCG Tab PO SCH (09:00)
[2024-03-03] MEDS ORDERED: Folic Acid 400 MCG TAB PO SCH (09:00)
--- NOTE | 2024-03-03 11:21 | NUR ---
"Spiritual Care Visit | Pt. Request Pt. is awake in bed and welcomed my visit. Friends are at bedside. Pt. is pleasant. Facilitated a life review and considered matters of je and belief. Listened as Pt. shared his personal story of je. Pt. displayed evidence of encouragement and of good humor. Prayed with the Pt. Pt. verbalized gratitude for the spiritual care visit."
[2024-03-03] MEDS ORDERED: Hydrocortisone 10 MG Tab PO SCH (14:00)
[2024-03-03 15:43] VITALS: BP 153/95
[2024-03-03] MEDS ORDERED: Potassium Chloride 20 MEQ TabCR PO STA (15:54)
[2024-03-03] MEDS ORDERED: ZEBUTAL 50-3251 EAC1 (16:19)
[2024-03-03] MEDS ORDERED: B-1100 M1 PO (16:20)
--- NOTE | 2024-03-03 16:34 | NUR ---
DISCHARGE NOTE; IV AND TELE REMOVED, PATIENT GOT HIMSELF DRESSED AND GATHERED BELONGINGS. WENT OVER DISCHARGE WITH PATIENT AND FAMILY. NO SIGNS OR SYMPTOMS OF DISTRESS DURING DISCHARGE. PATIENT WALKED OFF UNIT WITH HIS DAUGHTE AND .
== END 2024-03-03 16:47 | disposition home or self-care (01) ==
LOC: ER 21:14 → ERHOLD 21:15 → MEDS 21:15 → ERHOLD 21:15 → MEDS 03-02 08:06
PROVIDERS: Internal Medicine; Student in an Organized Health Care Education/Training Program; ADMIT Internal Medicine
DX: R51.9 Headache, unspecified (principal); H57.12 Ocular pain, left eye; R47.01 Aphasia; I67.4 Hypertensive encephalopathy; E87.6 Hypokalemia; F10.90 Alcohol use, unspecified, uncomplicated; I10 Essential (primary) hypertension; E78.5 Hyperlipidemia, unspecified; I48.20 Chronic atrial fibrillation, unspecified; E11.9 Type 2 diabetes mellitus without complications; E27.40 Unspecified adrenocortical insufficiency; Z79.01 Long term (current) use of anticoagulants; Z79.899 Other long term (current) drug therapy; Z87.891 Personal history of nicotine dependence; Z86.73 Personal history of transient ischemic attack (TIA), and cerebral infarction without residual deficits; I16.1 Hypertensive emergency
CPT/HCPCS: 36415; 70450; 70496; 70498; 70551; 80053; 80061; 80069; 80320; 81001; 82607; 82746; 83735; 84132; 84484; 85025; 85610; 85730; 92610; 93005; 93010; 94760; 96365; 96366; 96374-59; 96375; 96376; 97161; 97165; 99285-25; A9270; G0378; J2405; J2765; J3411; J3480; J7050; Q9967

== ENCOUNTER 2025-01-29 20:23 | Emergency (ER) | payer OTHER ==
[~2025-01-29] VITALS: Ht 182.9 cm; Wt 79.4 kg
[~2025-01-29 20:23] MED LIST changes: +B-1100 M1 PO; +ELIQUIS2.5 MG PO; +FLUDROCORTISON0.1 M1 PO; +POTCHL20ER PO; +ZEBUTAL 50-3251 EAC1
[2025-01-29 23:15] VITALS: BP 158/74
== END 2025-01-29 23:35 | disposition home or self-care (01) ==
LOC: ER 20:23
DX: S01.81XA Laceration without foreign body of other part of head, initial encounter (principal); W01.0XXA Fall on same level from slipping, tripping and stumbling without subsequent striking against object, initial encounter; E11.9 Type 2 diabetes mellitus without complications; I10 Essential (primary) hypertension; E78.5 Hyperlipidemia, unspecified; Z88.0 Allergy status to penicillin; Z88.8 Allergy status to other drugs, medicaments and biological substances; Z79.899 Other long term (current) drug therapy; Z79.01 Long term (current) use of anticoagulants; Z87.891 Personal history of nicotine dependence
CPT/HCPCS: 12013; 70450; 72125; 99283-25